=== PATIENT | male | born 1995 | race Caucasian/White ===

== ENCOUNTER 2019-09-10 22:08 | Emergency (ER) | payer SELFPAY ==
[2019-09-10 22:20] VITALS: TEMP 98; BMI 21.1
--- NOTE | 2019-09-10 22:51 | PDOC ---
Attending Attestation - Resident Resident Name: Ulysses Lin - ED Attending Attestation I have performed the following: I have examined & evaluated the patient, The case was reviewed & discussed with the resident, I agree w/resident's findings & plan - HPI HPI: 09/10/19 23:52 Pt has pain in his testicles - Physicial Exam PE: 09/11/19 00:55 Alert awake; NAD afebrile Lung CTA B Heart S1 S2RRR Abd soft NT ND no flank pain ext no C/C/E No testicle swelling or color change; no abnormal lie. agree with resident note. - Medical Decision Making 09/10/19 23:52 UA is negative 09/10/19 23:57 GC results pending 09/11/19 00:52 Patient Name: LUKASZ FLORENTINO THIS IS A PRELIMINARY REPORT FROM [facility] DATE OF SERVICE: 2019-09-10 23:14:38 IMAGES: 39 EXAM: SCROTUM AND CONTENTS US HISTORY: Right-sided scrotal pain. COMPARISON: None. Preliminary findings/impression: Bilateral hydroceles. Otherwise, no evidence of focal abnormalities on this study
--- NOTE | 2019-09-10 23:16 | PDOC ---
History of Present Illness - General Chief Complaint: Pain Stated Complaint: PAIN Time Seen by Provider: 09/10/19 22:39 History Source: Patient Exam Limitations: No Limitations - History of Present Illness Initial Comments: 09/10/19 23:25 Bradly Garcia is a 23M otherwise healthy presenting with R testicular pain. Patient reports pain started 4 days ago, woke up with pain, worse with movement and tender to touch. Denies recent physical exertion or strain. Denies urinary sx, abdominal pain, fever/chills, nausea, vomiting, constipation, diarrhea, chest pain, SOB, LOPES, dizziness. Has never had pain like this before. Denies history of any STI. Has sexual activity with only one partner, girlfriend at bedside, who is asymptomatic. Had some possible mild testicular trauma with sexual activity last week. Last sexual activity yesterday, reports this was painful. Denies anal sex. No other PMH, PSH. Denies alcohol/drug/tobacco use. Past History - Past Medical History Allergies/Adverse Reactions: Allergies Allergy/AdvReac Type Severity Reaction Status Date / Time No Known Allergies Allergy Verified 09/10/19 22:19 Home Medications: Ambulatory Orders Doxycycline Hyclate 100 mg PO BID 10 Days #20 tablet 09/11/19 COPD: No - Psycho Social/Smoking Cessation Hx Smoking History: Never smoked Review of Systems - Review of Systems Able to Perform ROS?: Yes Constitutional: No: Symptoms Reported HEENTM: No: Symptoms Reported Respiratory: No: Symptoms reported Cardiac (ROS): No: Symptoms Reported ABD/GI: No: Symptoms Reported : Yes: Testicular Pain. No: Burning, Dysuria, Discharge, Frequency, Flank Pain, Hematuria Musculoskeletal: No: Symptoms Reported Integumentary: No: Symptoms Reported Neurological: No: Symptoms reported Endocrine: No: Symptoms Reported Hematologic/Lymphatic: No: Symptoms Reported All Other Systems: Reviewed and Negative *Physical Exam - Vital Signs Last Vital Signs Temp Pulse Resp BP Pulse Ox 98 F 66 18 121/73 100 09/10/19 22:17 09/10/19 22:17 09/10/19 22:17 09/10/19 22:17 09/10/19 22:17 - Physical Exam General Appearance: Yes: Nourished, Appropriately Dressed, Thin. No: Apparent Distress HEENT: positive: EOMI, LUIS, Normal Voice, Symmetrical, Pharynx Normal. negative: Scleral Icterus (R), Scleral Icterus (L), Pharyngeal Erythema, Tonsillar Exudate, Tonsillar Erythema Neck: positive: Trachea midline, Normal Thyroid, Supple. negative: Tender, Rigid, Lymphadenopathy (R), Lymphadenopathy (L), Tender lateral, Tender midline Respiratory/Chest: positive: Lungs Clear, Normal Breath Sounds. negative: Chest Tender, Respiratory Distress, Accessory Muscle Use, Crackles, Rales, Rhonchi, Stridor, Wheezing Cardiovascular: positive: Regular Rhythm, Regular Rate. negative: Murmur Gastrointestinal/Abdominal: positive: Normal Bowel Sounds, Flat, Soft. negative : Tender Male Genitalia: positive: normal genitalia, testicular tenderness, epididymus tender. negative: discharge, testicular mass, inguinal hernia Musculoskeletal: positive: Normal Inspection, CVA Tenderness. negative: Decreased Range of Motion Extremity: positive: Normal Inspection, Normal Range of Motion. negative: Normal Capillary Refill, Tender, Pelvis Stable, Swelling, Calf Tenderness Integumentary: positive: Normal Color, Dry, Warm Neurologic: positive: Fully Oriented, Alert, Normal Mood/Affect, Normal Response , Other (gait normal) Medical Decision Making - Medical Decision Making 09/10/19 23:36 Patient presents with 4 days of posterior right testicular pain without urinary/ fecal symptoms and no systemic fever/chills. Sexual activity with one partner who is asymptomatic, denies anal sex, denies history of STI or penile discharge. Ddx includes STI, epididymitis, low suspicion of torsion. - UA/UC/GC for eval UTI and STI - scrotal US for eval epididymitis Will likely need ceftriaxone and doxyxycline for Abx coverage. 09/10/19 23:39 Labs notable for: - UA no UTI 09/11/19 00:45 US shows bilateral hydroceles without any other focal abnormality. Likely has epididymitis, will give IM 250mg ceftriaxone with 100mg doxy BID for 10 days. Discharge - Discharge Information Problems reviewed: Yes Clinical Impression/Diagnosis: Testicular pain, right - Additional Discharge Information Prescriptions: Doxycycline Hyclate 100 mg PO BID 10 Days #20 tablet - Follow up/Referral Referrals: Jonah Ulrich MD [Primary Care Provider] - CallBack Reminder: STI testing - Patient Discharge Instructions Patient Printed Discharge Instructions: DI for Epididymitis Additional Instructions: Today you were evaluated for testicular pain. We have diagnosed you with epididymitis, an infection in your testicle. We are giving you antibiotics called ceftriaxone and doxycycline. Please take the doxycycline every 12 hours for the next 10 days. You will receive a call about STi testing if your tests are positive. Please follow-up with your primary doctor in the next 3 days for further care. If you experience worsening testicular pain, bloody urine, diarrhea, penile discharge, or any other new or concerning symptoms, please return to the emergency room. - Post Discharge Activity
[2019-09-10 23:20] LABS: PH,URINE 6.5 (5.0-8.0); URINE APPEARANCE CLEAR; URINE BILIRUBIN NEGATIVE (NEGATIVE); URINE COLOR YELLOW; URINE GLUCOSE (UA) NEGATIVE (NEGATIVE); URINE KETONE NEGATIVE (NEGATIVE); URINE LEUK ESTERASE NEGATIVE (NEGATIVE); URINE NITRITE NEGATIVE (NEGATIVE); URINE PROTEIN NEGATIVE (NEGATIVE)
[2019-09-11] MEDS ORDERED: IBUPROFEN 600 MG TABLET (FP) PO ONE ×2 (01:11→01:23)
[2019-09-11] MEDS ORDERED: cefTRIAXone SODIUM 1 GM VIAL ONE (01:23)
[2019-09-11] MEDS ORDERED: LIDOCAINE HCL 1%, 10 MG/ML (20ML VIAL) ONE (01:23)
[2019-09-11 02:33] VITALS: BP 121/85; PULSE 63
== END 2019-09-11 01:30 | disposition home or self-care (01) ==
LOC: JER 22:08
DX: N45.1 Epididymitis (principal)
CPT/HCPCS: 36415; 76870-TC; 81003; 87086; 87491; 87591; 99282-25

== ENCOUNTER 2020-07-23 18:29 | Emergency (ER) | payer SELFPAY ==
[2020-07-23 18:37] VITALS: BP 143/90; PULSE 108; TEMP 98; BMI 23.7
[2020-07-23] MEDS ORDERED: DIPHTH,PERTUSS(ACELL),TET 0.5 ML DISP.SYRIN IM ONE ×2 (19:00→19:02)
== END 2020-07-23 21:00 | disposition home or self-care (01) ==
LOC: JERFT 18:29
PROC: 3E0234Z Introduction of Serum, Toxoid and Vaccine into Muscle, Percutaneous Approach (ICD-10-PCS; principal; 2020-07-23)
PROC: 2W3CX1Z Immobilization of Right Lower Arm using Splint (ICD-10-PCS; 2020-07-23)
DX: S62.302A Unspecified fracture of third metacarpal bone, right hand, initial encounter for closed fracture (principal); W50.3XXA Accidental bite by another person, initial encounter
CPT/HCPCS: 73130-TC-RT-FY; 90715; 99284-25

== ENCOUNTER 2022-05-03 00:37 | Emergency (ER) | payer OTHER ==
[2022-05-03 00:53] VITALS: BP 127/62; PULSE 88; RESP 18; TEMP 97.7; BMI 24.4
== END 2022-05-03 04:42 | disposition home or self-care (01) ==
LOC: JER 00:37
DX: N48.89 Other specified disorders of penis (principal)
CPT/HCPCS: 36415; 86780; 99283-25

== ENCOUNTER 2023-08-18 12:32 | Emergency (ER) | payer OTHER ==
[2023-08-18 12:38] VITALS: BMI 25.7
[2023-08-18] MEDS ORDERED: ACETAMINOPHEN 1000 MG/100 ML BAG IVPB ONE (14:31)
[2023-08-18] MEDS ORDERED: SODIUM CHLORIDE 1,000 ML IV STA (14:31)
[2023-08-18] MEDS ORDERED: ACETAMINOPHEN INJECTION 100 ML IVPB ONE (14:52)
[2023-08-18 15:31] LABS: BASO % 0.3 % (0-2.0); EOS % 0.6 % (0-4.5); HEMATOCRIT 42.8 % (35.4-49); HEMOGLOBIN 13.9 GM/dL (11.7-16.9); LYMPH % 19.6 % (8-40); MCH 27.3 pg (25.7-33.7); MCHC 32.4 g/dl (32.0-35.9); MEAN CELL VOLUME 84.2 fl (80-96); MEAN PLT VOLUME 8.4 fl (7.5-11.1); MONO % 10.3 % (3.8-10.2); NEUT % 69.2 % (42.8-82.8); PLATELET COUNT 292 10^3/uL (134-434); RBC 5.08 M/mm3 (4.00-5.60); RDW 13.3 % (11.9-15.9); WHITE BLOOD COUNT 15.1 K/mm3 (4.0-10.0)
[2023-08-18 15:38] LABS: INR 1.12 (0.83-1.09)
[2023-08-18 15:41] LABS: ACTIVATED PTT 26.9 SECONDS (25.2-36.5)
[2023-08-18 15:53] LABS: POTASSIUM 4.3 mmol/L (3.5-5.1)
[2023-08-18 15:55] LABS: ALBUMIN 3.8 g/dl (3.4-5.0); CALCIUM 8.7 mg/dL (8.5-10.1)
[2023-08-18 15:56] LABS: BLOOD UREA NITROGEN 8.2 mg/dL (7-18)
[2023-08-18 15:58] LABS: CREATININE 0.8 mg/dL (0.55-1.3)
[2023-08-18 16:00] LABS: BILIRUBIN,TOTAL 0.5 mg/dL (0.2-1); TOT PROT 7.7 g/dl (6.4-8.2)
[2023-08-18 17:29] VITALS: BP 139/89; PULSE 92; RESP 16; TEMP 99.2
== END 2023-08-18 17:29 | disposition home or self-care (01) ==
LOC: JER 12:32
PROC: 3E033NZ Introduction of Analgesics, Hypnotics, Sedatives into Peripheral Vein, Percutaneous Approach (ICD-10-PCS; principal; 2023-08-18)
PROC: 3E0337Z Introduction of Electrolytic and Water Balance Substance into Peripheral Vein, Percutaneous Approach (ICD-10-PCS; 2023-08-18)
DX: S00.511A Abrasion of lip, initial encounter (principal); S00.93XA Contusion of unspecified part of head, initial encounter; U07.1 COVID-19; R11.2 Nausea with vomiting, unspecified; R55 Syncope and collapse; R51.9 Headache, unspecified; W19.XXXA Unspecified fall, initial encounter; Y93.89 Activity, other specified; Y92.002 Bathroom of unspecified non-institutional (private) residence as the place of occurrence of the external cause
CPT/HCPCS: 0241U-QW; 36415; 70450-TC; 71045-TC-FY; 80053; 84484; 85025; 85610; 85730; 93005; 93010; 96361; 96374; 99285-25